=== PATIENT | female | born 1970 | race Caucasian/White ===

== ENCOUNTER → 2017-11-21 08:45 | Outpatient (CLI) | payer OTHER, SELFPAY ==
[2017-11-21 09:58] LABS: Thyroid Stimulating Hormone 0.81 uIU/ml (0.358-3.740)
== END ==
PROVIDERS: Visit Provider Physician Assistant
DX: E03.9 Hypothyroidism, unspecified (principal)
CPT/HCPCS: 36415; 84443

== ENCOUNTER → 2017-12-26 08:04 | Outpatient (CLI) | payer SELFPAY ==
--- NOTE | 2017-12-26 08:06 | MM_ITS ---
MM Dig screening mamm BI w/CAD CAD Screening COMPARISON: Digital mammograms with CAD 10/04/2016 and 07/14/2015 INDICATION: There is no personal or family history of breast cancer. This been previous biopsy left breast for benign disease. TECHNIQUE: Standard CC and MLO images were obtained. R2 CAD reviewed. FINDINGS: Moderate diffuse fibroglandular densities are seen in both breast primarily upper outer quadrants. There is a possible asymmetric density lower inner quadrant left breast. Suggest patient return for spot compression views and probably ultrasound as well. There are no suspicious microcalcifications. IMPRESSION: Moderate diffuse breast density with probable asymmetric density left breast BI-RADS Category: 0 Need Additional Imaging Evaluation RECOMMENDED FOLLOW-UP: IMM - IMMEDIATE FOLLOW-UP RECOMMENDED (A letter has been sent to the patient regarding results of the study.)
== END ==
PROVIDERS: Family Provider Family Medicine; PCP Family Medicine; Visit Provider Obstetrics & Gynecology
DX: Z12.31 Encounter for screening mammogram for malignant neoplasm of breast (principal)
CPT/HCPCS: 77067

== ENCOUNTER → 2018-01-12 12:55 | Outpatient (CLI) | payer OTHER, SELFPAY ==
--- NOTE | 2018-01-12 13:02 | US_ITS ---
US breast LT complete COMPARISON: Diagnostic left mammogram same date HISTORY: Evaluation of asymmetric nodular density left breast TECHNIQUE: Targeted ultrasound FINDINGS: There is an oval hypoechoic lesion 6:00 position near the nipple measuring 0.7 0.5 x 1.2 cm. It has both cystic and solid components and likely is a complex cyst with internal debris or possibly a cyst with recent internal hemorrhage. There is a well-defined interface between the lesion and the surrounding breast parenchyma which is a normal appearance. IMPRESSION: Probable benign lesion such as a complex cyst or fibroadenoma however recommend patient return for 6 month follow-up left mammogram and ultrasound for continuing evaluation
--- NOTE | 2018-01-12 13:02 | MM_ITS ---
MM Dig mamm DX unilat LT CAD COMPARISON: Screening mammogram with CAD 12/26/2017 INDICATION: Asymmetric nodular density left breast TECHNIQUE: Spot compression MLO and CC views FINDINGS: There Is a small oval nodular lesion lower inner quadrant. It has rather smooth borders and the surrounding breast parenchyma is primarily fatty. Ultrasound performed the same date showed a complex cystic and solid benign-appearing lesion with smooth borders. A complex cyst with internal debris and/or a fibroadenoma or possibilities. IMPRESSION: Probable benign lesion as described above and recommend the patient return for 6 month follow-up mammogram and ultrasound for continuing evaluation. BI-RADS Category: 3 Benign Finding Short Term Follow-up RECOMMENDED FOLLOW-UP: 6M - 6 MONTH FOLLOW-UP (A letter has been sent to the patient regarding results of the study.)
== END ==
PROVIDERS: Family Provider Family Medicine; PCP Family Medicine; Visit Provider Obstetrics & Gynecology
DX: N64.59 Other signs and symptoms in breast (principal)
CPT/HCPCS: 76641; 77065

== ENCOUNTER → 2018-08-15 12:04 | Outpatient (CLI) | payer OTHER, SELFPAY ==
--- NOTE | 2018-08-15 12:07 | US_ITS ---
MM Dig mamm DX unilat LT CAD Left breast ultrasound complete with axilla INDICATION: Follow-up abnormal mammogram and ultrasound ORDERING PHYSICIAN: Joseph Carbone MD PATIENT AGE: 48 years COMPARISON: 12/26/2017, 01/12/2018 TECHNIQUE: Standard CC and MLO images were obtained. R2 CAD reviewed. FINDINGS: Asymmetric density is noted in the upper outer aspect of the left breast appear to compress out as fibroglandular tissue . There is a persistent nodular lesion in the medial aspect of the left breast measuring 12 mm at the 7:00 area. Or slightly larger than when compared to the previous exam. Left breast ultrasound: There is a complex 7 x 5 mm cyst at 1:00. At 7:00 near the nipple there is a hypoechoic nodule oval shaped at 13 x 8 mm. Previously this was 7 x 5 mm. This is hypoechoic with enhanced through transmission of sound with some cystic areas but has increased in size and does have some solid component as well. There is a 5 mm cyst at 3:00 IMPRESSION: Nodular density in the medial aspect of left breast at 7:00 is slightly increased in size with a complex cystic appearance by ultrasound. Mildly suspicious. Ultrasound-guided mammotome biopsy recommended BI-RADS Category: 4 Suspicious Abnormality-Biopsy Considered RECOMMENDED FOLLOW-UP: BIO - BIOPSY RECOMMENDED (A letter has been sent to the patient regarding results of the study.)
== END ==
PROVIDERS: PCP Family Medicine; Visit Provider Obstetrics & Gynecology
DX: R92.8 Other abnormal and inconclusive findings on diagnostic imaging of breast (principal)
CPT/HCPCS: 76641; 77065

== ENCOUNTER → 2018-08-28 07:20 | Outpatient (CLI) | payer OTHER, SELFPAY ==
[2018-08-28 07:48] LABS: Basophils # 0.1 K/mm3 (0-0.2); Basophils % 0.9 % (0.1-2.0); Eosinophils # 0.1 K/mm3 (0.0-0.4); Eosinophils % 2.5 % (0.1-12.0); Hematocrit 43.9 % (37.0-47.0); Hemoglobin 14.6 g/dL (12.2-16.2); Lymphocytes # 2.1 K/mm3 (0.7-4.5); Lymphocytes % 39.5 % (10-50); Mean Corpuscular HGB Conc 33.2 g/dL (31.8-35.4); Mean Corpuscular Hemoglobin 27.8 pg (27.0-31.2); Mean Corpuscular Volume 83.8 fl (81-99); Mean Platelet Volume 8.5 fl (7.4-10.4); Monocytes # 0.3 K/mm3 (0.1-1.0); Monocytes % 4.8 % (1.7-9.3); Neutrophils # 2.8 K/mm3 (1.8-7.8); Neutrophils % 52.4 % (37.0-80.0); Platelet Count 210 K/mm3 (142-424); Red Blood Count 5.25 M/mm3 (4.20-5.40); Red Cell Distribution Width 13.2 % (11.5-17.5); White Blood Count 5.4 K/mm3 (4.8-10.8)
[2018-08-28 16:17] LABS: Chol/HDL Ratio 3.4 (1-3.5); Cholesterol 118 mg/dL (140-200); Ferritin 47 ng/mL (8-388); HDL Cholesterol 35 mg/dL (29-89); LDL Cholesterol 72 mg/dL (0-130); Thyroid Stimulating Hormone 0.42 uIU/ml (0.358-3.740); Triglycerides 53 mg/dL (30-200); VLDL Cholesterol 11 mg/dL (0-40)
[2018-08-29 08:31] LABS: Iron 66 ug/dL (27-159); UIBC 210 ug/dL (131-425)
[2018-08-29 15:04] LABS: Iron Saturation 24 % (15-55)
== END ==
PROVIDERS: Visit Provider Physician Assistant
DX: E03.9 Hypothyroidism, unspecified (principal); Z86.2 Personal history of diseases of the blood and blood-forming organs and certain disorders involving the immune mechanism; Z13.220 Encounter for screening for lipoid disorders
CPT/HCPCS: 36415; 80061; 82728; 83540; 83550; 84439; 84443; 85025

== ENCOUNTER → 2018-09-06 09:55 | Outpatient (CLI) | payer OTHER, SELFPAY ==
--- NOTE | 2018-09-06 10:10 | US_ITS ---
US mammotome bx LT, MM clip placement LT INDICATION: Abnormal mammogram and left breast ultrasound with left breast nodule noted. ORDERING PHYSICIAN: Savage Zapien MD PATIENT AGE: 48 years COMPARISON: 08/15/2018 TECHNIQUE: The nodule of interest was noted with prebiopsy ultrasound and appropriate area marked for biopsy. Following obtaining informed consent and timeout procedure under aseptic conditions and local anesthesia with 1% buffered lidocaine and deeper anesthesia with lidocaine mixed with epinephrine skin neck was performed and 9 gauge mammotomy needle inserted. Multiple mammotomy cores are obtained. The nodule nearly completely resolved at the end of the procedure. A clip was then placed. Postbiopsy mammogram: Postbiopsy changes are present in the region of the nodule of interest at 7:00. The nodule was noted is smaller. Pathology: Benign breast with stromal fibrosis, adenosis, cystic dilatation of ducts and features compatible with cyst wall. Negative for carcinoma IMPRESSION: Successful and uneventful sonographic guided mammotome biopsy of left breast showing benign findings. Recommend 6 month mammographic and sonographic follow-up per routine protocol..
== END ==
PROVIDERS: PCP Family Medicine; Visit Provider Surgery
DX: N63.23 Unspecified lump in the left breast, lower outer quadrant (principal)
CPT/HCPCS: 19083; 76942; 77065; C2618

== ENCOUNTER → 2019-01-21 14:07 | Outpatient (CLI) | payer OTHER, SELFPAY ==
--- NOTE | 2019-01-21 14:08 | MM_ITS ---
MM Dig mamm BI DX w/CAD, US breast LT complete INDICATION: Follow-up abnormal mammogram, follow-up breast biopsy, fibrocystic changes ORDERING PHYSICIAN: Savage Zapien MD PATIENT AGE: 48 years COMPARISON: 12/26/2017, 08/15/2018, 09/06/2018 TECHNIQUE: Standard images performed along with spot compression views and left breast ultrasound FINDINGS: Average to dense fibroglandular tissue Right breast: Unremarkable. Left breast: Biopsy clip is present adjacent to a nodular density in the lower inner quadrant of left breast middle one third. This nodule is smaller than when compared to the prebiopsy exam of 08/15/2018. Benign-appearing cluster of calcifications noted in the inferior aspect of left breast stable since 07/14/2015 Left breast ultrasound: 4 mm hypoechoic nodule at 1:00 consistent with a complicated cyst., Dictated cyst at 3:00 at 5 mm hypoechoic nodule at 7:00 at 1 x 0.3 cm. This is smaller when compared to the previous study previously measuring 1.3 x 0.6 cm. This was the nodule that was biopsied. There is good through transmission of sound with well-defined margins. The nodule was left in the chest wall IMPRESSION: Benign findings. No convincing evidence of malignancy. Negative right breast. Benign findings left breast. Previously noted nodule at 7:00 is smaller status post biopsy BI-RADS Category: 2 Benign Finding(s) RECOMMENDED FOLLOW-UP: 1YR - 1 YEAR FOLLOW-UP (A letter has been sent to the patient regarding results of the study.)
== END ==
PROVIDERS: PCP Family Medicine; Visit Provider Surgery
DX: N63.20 Unspecified lump in the left breast, unspecified quadrant (principal)
CPT/HCPCS: 76641; 77066

== ENCOUNTER → 2020-09-29 15:46 | Outpatient (CLI) | payer OTHER, SELFPAY ==
--- NOTE | 2020-09-29 15:48 | MM_ITS ---
PROCEDURE: MM DIG SCREENING MAMM BI W/CAD Digital Breast Tomosynthesis Included CLINICAL INDICATION: SCREENING There is no personal or family history of breast cancer. There has been a previous biopsy left breast for disease. COMPARISON: MG DXLT MM Dig mamm DX unilat LT CAD from 08/15/2018 MG CLIPLT MM clip placement LT from 09/06/2018 MG MM DIG MAMM BI DX W/CAD from 01/21/2019 TECHNIQUE: Standard CC and MLO images and 3D Tomosynthesis was obtained. R2 CAD reviewed. FINDINGS: Mild to moderate scattered fibroglandular densities are seen in both breast primarily upper quadrants. There is a mole marker low in the left axilla and another mole marker inner quadrant left breast. There is a biopsy clip left breast. There are few benign-appearing microcalcifications in each breast. There is a possible new asymmetric density upper-outer quadrant right breast with slightly irregular borders. Recommend the patient return for spot compression views and ultrasound for additional evaluation of the area marked on the film. IMPRESSION: Fibrofatty parenchyma with probable new nodular lesion right breast BI-RAD Category: 0 Need Additional Imaging Evaluation FOLLOW-UP: IMM Immediate Follow-up Recommended (A letter has been sent to the patient regarding results of the study.) Dictated by: Dr. Andrei Salinas MD 10/02/2020 11:32 Dr. Andrei Salinas MD in [place] 10/02/2020 11:32
== END ==
PROVIDERS: PCP Family Medicine; Visit Provider Physician Assistant
DX: Z12.31 Encounter for screening mammogram for malignant neoplasm of breast (principal)
CPT/HCPCS: 77063; 77067

== ENCOUNTER → 2020-10-16 13:48 | Outpatient (CLI) | payer OTHER, SELFPAY ==
--- NOTE | 2020-10-16 13:52 | US_ITS ---
PROCEDURE: MM DIG MAMM DX UNILAT RT CAD Digital Breast Tomosynthesis Included CLINICAL INDICATION: ABN MAMM Follow-up abnormal mammogram COMPARISON: MG DMSB DIG MAMM-SCREEN RANDOLPH W/CAD from 10/04/2016 MG SCBI MM Dig screening mamm BI w/CAD from 12/26/2017 MG DXLT MM Dig mamm DX unilat LT CAD from 01/12/2018 MG CLIPLT MM clip placement LT from 09/06/2018 MG MM DIG MAMM BI DX W/CAD from 01/21/2019 MG MM DIG SCREENING MAMM BI W/CAD from 09/29/2020 US US BREAST RT COMPLETE from 10/16/2020 TECHNIQUE: Standard CC and MLO images and 3D Tomosynthesis was obtained. R2 CAD reviewed. FINDINGS: Right mammogram: Spot-compression views are obtained. There is a vague nodular density in the upper outer lateral aspect of the right breast at 8 mm and 1 in the deep aspect of the right breast at 4 mm. No malignant appearing microcalcifications evident. Right breast ultrasound: At 10 o'clock there is a 6 x 2 mm cyst. Small nodes are present in the axilla. There is some prominent ducts in the retroareolar region. IMPRESSION: Probably benign findings. The nodule in the upper outer right breast may be due to small cyst. The central deep breast nodule is not well identified on either the MLO or the breast ultrasound. Suggest six-month sonographic and mammographic follow-up. BI-RAD Category: 3 Probably Benign Finding Short Term Follow-up Follow-Up: 6M 6Month Follow-up (A letter has been sent to the patient regarding results of the study.) Dictated by: Edison Padilla MD 10/23/2020 13:23 Edison Padilla MD in [place] 10/23/2020 13:23
== END ==
PROVIDERS: PCP Family Medicine; Visit Provider Physician Assistant
DX: R92.8 Other abnormal and inconclusive findings on diagnostic imaging of breast (principal)
CPT/HCPCS: 76641; 77061; 77065; G0279

== ENCOUNTER → 2021-04-19 13:09 | Outpatient (CLI) | payer BC, SELFPAY ==
--- NOTE | 2021-04-19 13:14 | MM_ITS ---
PROCEDURE: MM DIG MAMM DX UNILAT RT CAD Digital Breast Tomosynthesis Included Right breast ultrasound CLINICAL INDICATION: ABN MAMM 6 MONTH FOLLOW UP COMPARISON: MG DMSB DIG MAMM-SCREEN RANDOLPH W/CAD from 10/04/2016 MG SCBI MM Dig screening mamm BI w/CAD from 12/26/2017 MG MM DIG MAMM BI DX W/CAD from 01/21/2019 MG MM DIG SCREENING MAMM BI W/CAD from 09/29/2020 MG MM DIG MAMM DX UNILAT RT CAD from 10/16/2020 US US BREAST RT COMPLETE from 10/16/2020 US US BREAST RT COMPLETE from 04/19/2021 TECHNIQUE: Standard CC and MLO images and 3D Tomosynthesis was obtained. R2 CAD reviewed. FINDINGS: There are scattered areas of fibroglandular density. The area of asymmetry previously described in the upper aspect of the right breast is somewhat less apparent. No malignant appearing mass or malignant-appearing microcalcification. Right breast ultrasound: A 4 mm by 6 mm cyst is present at the 10 o'clock region not significantly changed. No other significant abnormalities are apparent. IMPRESSION: Benign findings. Recommend resume screening mammogram in September 2021 BI-RAD Category: 2 Benign Finding FOLLOW-UP: 6M 6 Month Follow-up (A letter has been sent to the patient regarding results of the study.) Dictated by: Edison Padilla MD 04/29/2021 18:06 Edison Padilla MD in [place] 04/29/2021 18:06
== END ==
PROVIDERS: PCP Family Medicine; Visit Provider Family Medicine
DX: R92.8 Other abnormal and inconclusive findings on diagnostic imaging of breast (principal)
CPT/HCPCS: 76641; 77061; 77065; G0279

== ENCOUNTER → 2021-12-27 12:22 | Outpatient (CLI) | payer BC, SELFPAY ==
[2021-12-27 13:10] LABS: Basophils % 0.6 % (0.1-2.0); Eosinophils # 0.1 K/mm3 (0.0-0.4); Hematocrit 43.4 % (37.0-47.0); Hemoglobin 14.1 g/dL (12.2-16.2); Lymphocytes # 2.1 K/mm3 (0.7-4.5); Mean Corpuscular HGB Conc 32.6 g/dL (31.8-35.4); Mean Corpuscular Hemoglobin 27.8 pg (27.0-31.2); Mean Corpuscular Volume 85.3 fl (81-99); Mean Platelet Volume 8.2 fl (7.4-10.4); Monocytes # 0.3 K/mm3 (0.1-1.0); Monocytes % 5.1 % (1.7-9.3); Neutrophils # 3.9 K/mm3 (1.8-7.8); Neutrophils % 60.3 % (37.0-80.0); Platelet Count 303 K/mm3 (142-424); Red Blood Count 5.09 M/mm3 (4.20-5.40); Red Cell Distribution Width 14.3 % (11.5-17.5); White Blood Count 6.5 K/mm3 (4.8-10.8)
[2021-12-27 13:31] LABS: Chloride 103 mmol/L (98-107)
[2021-12-27 13:32] LABS: Potassium 3.6 mmoL/L (3.5-5.1); Sodium 137 mmol/L (136-145)
[2021-12-27 13:34] LABS: Alanine Aminotransferase 26 U/L (12-78); Alkaline Phosphatase 72 U/L (38-126); Anion Gap 11.6 mEq/L (5-15); Aspartate Amino Transferase 37 U/L (14-36); Bilirubin,Total 0.6 mg/dl (0.2-1.3); Blood Urea Nitrogen 10 mg/dl (7-17); Carbon Dioxide 26 mmol/L (22.0-30.0); Cholesterol 195 mg/dl (140-200); Estimated Glomerular Filt Rate 89 ml/min (>60); GFR (African American) 108 ML/MIN (>60); Iron 131 ug/dL (37-170); Triglycerides 98 mg/dl (30-150); VLDL Cholesterol 20 mg/dL (0-40)
[2021-12-27 13:35] LABS: Albumin Level 4.4 g/dl (3.5-5.0); Albumin/Globulin Ratio 1.4 (1.1-1.8); Calcium 9.6 mg/dl (8.4-10.2); Chol/HDL Ratio 3.3 (1-3.5); Globulin 3.1 g/dL (1.3-3.2); Glucose 94 mg/dl (74-100); HDL Cholesterol 59 mg/dl (40-60); Total Protein,Serum 7.5 g/dl (6.3-8.2)
[2021-12-27 13:45] LABS: Total Iron Binding Capacity 300 ug/dL (265-497)
[2021-12-27 13:50] LABS: Free T4 (Free Thyroxine) 1.22 ng/dl (0.78-2.19)
[2021-12-27 14:06] LABS: Thyroid Stimulating Hormone 0.96 uIU/mL (0.465-4.68)
[2021-12-27 14:09] LABS: Ferritin 42.7 ng/ml (6.24-137)
== END ==
PROVIDERS: PCP Family Medicine; Visit Provider Physician Assistant
DX: E78.1 Pure hyperglyceridemia (principal); E03.9 Hypothyroidism, unspecified; I10 Essential (primary) hypertension; Z86.2 Personal history of diseases of the blood and blood-forming organs and certain disorders involving the immune mechanism
CPT/HCPCS: 36415; 80053; 80061; 82728; 83540; 83550; 84439; 84443; 85025

== ENCOUNTER → 2022-05-05 11:22 | Outpatient (CLI) | payer BC, SELFPAY ==
[2022-05-05 12:13] LABS: Coronavirus 19, PCR Not Detected (NotDetected); Influenza B, PCR Not Detected (NotDetected)
[2022-05-05 12:33] LABS: Basophils # 0.1 K/mm3 (0-0.2); Basophils % 1.7 % (0.1-2.0); Eosinophils % 0.4 % (0.1-12.0); Hematocrit 45.6 % (37.0-47.0); Hemoglobin 14.8 g/dL (12.2-16.2); Lymphocytes # 1.3 K/mm3 (0.7-4.5); Mean Corpuscular HGB Conc 32.5 g/dL (31.8-35.4); Mean Corpuscular Hemoglobin 28.4 pg (27.0-31.2); Mean Corpuscular Volume 87.3 fl (81-99); Mean Platelet Volume 9.3 fl (7.4-10.4); Monocytes # 0.3 K/mm3 (0.1-1.0); Monocytes % 8.2 % (1.7-9.3); Neutrophils # 2.5 K/mm3 (1.8-7.8); Neutrophils % 59.8 % (37.0-80.0); Platelet Count 255 K/mm3 (142-424); Red Blood Count 5.22 M/mm3 (4.20-5.40); Red Cell Distribution Width 15.2 % (11.5-17.5); White Blood Count 4.2 K/mm3 (4.8-10.8)
[2022-05-05 12:44] LABS: Influenza A, PCR Detected (NotDetected)
== END ==
PROVIDERS: PCP Family Medicine; Visit Provider Physician Assistant
DX: Z20.822 Contact with and (suspected) exposure to COVID-19 (principal); J09.X2 Influenza due to identified novel influenza A virus with other respiratory manifestations
CPT/HCPCS: 36415; 85025; C9803; U0003; U0005

== ENCOUNTER → 2022-10-12 16:58 | Outpatient (CLI) | payer BC, SELFPAY ==
--- NOTE | 2022-10-12 17:04 | MM_ITS ---
PROCEDURE INFORMATION: Exam: MG Bilateral Screening 3D Mammography Exam date and time: 10/12/2022 4:57 PM Age: 52 years old Clinical indication: Screening examination TECHNIQUE: Imaging protocol: Bilateral Screening tomosynthesis and 2D mammography including computer-aided detection (CAD) when performed. COMPARISON: 1. MG MM DIG MAMM DX UNILAT RT CAD 04/19/2021 1:30 PM 2. MG MM DIG MAMM DX UNILAT RT CAD 10/16/2020 2:10 PM FINDINGS: MAMMOGRAPHY: Breast composition: There are scattered areas of fibroglandular density. Mass: None. Architectural distortion: None. Calcifications: No suspicious calcifications. Asymmetric density: None. Skin thickening: None. Axillary adenopathy: None. IMPRESSION: No mammographic evidence of malignancy. Annual screening is recommended unless otherwise clinically indicated. ASSESSMENT: BI-RADS Category 1: Negative
== END ==
PROVIDERS: PCP Family Medicine; Visit Provider Family Medicine
DX: Z12.31 Encounter for screening mammogram for malignant neoplasm of breast (principal)
CPT/HCPCS: 77063; 77067

== ENCOUNTER 2023-04-24 08:38 | Emergency (ER) | payer BC, SELFPAY ==
[2023-04-24 09:20] VITALS: BP 145/92; PULSE 91; RESP 18; TEMP 36.8; O2SAT 98; BMI 28.7
[2023-04-24 09:38] VITALS: BP 145/92; PULSE 91; RESP 18; TEMP 36.8; O2SAT 98
--- NOTE | 2023-04-24 09:43 | EXP.UTC ---
Discharge Plan Disposition Patient Disposition: Home, Self-Care Condition: Good Prescriptions Prescriptions: New benzonatate 100 mg capsule 100 mg PO TID PRN (Reason: cough) Qty: 30 0RF No Action lisinopril 20 mg tablet 20 mg PO DAILY levothyroxine 100 mcg tablet 100 mcg PO DAILY Patient Comments: TAKE ONE TABLET BY MOUTH EVERY DAY estradiol 1 mg tablet See Rx Instructions .ROUTE .COMPLEX Qty: 30 12RF Dose Instruction: TAKE ONE TABLET BY MOUTH EVERY DAY Rx Instructions: TAKE ONE TABLET BY MOUTH EVERY DAY amlodipine 5 mg tablet 5 mg PO DAILY Patient Comments: TAKE ONE TABLET BY MOUTH EVERY DAY Referrals Follow up/Referrals: Chavez Lozano MD [Primary Care Provider] - See instructions Activity Restrictions/Add. Instructions Additional Instructions/Restrictions: *Monitor Temp, Over the counter Motrin or Tylenol as directed/as needed Tylenol every 4 hours and Motrin every 6 hours (as long as your family doctor has told you that you can take it) for fever or pain. and straight to ER if unable to lower temp less than 101.0 after medication given *Warm salt water gargles may help to soothe the throat *Throat Lozenges? *Warm fluids like tea with honey may help to soothe the throat? *Sleep elevated *Humidifier/Vaporizer Your throat swab was sent for culture. Those results are typically sent to your primary care. Be sure to follow up in 2-3 days with your family doctor/primary care physician if no improvement so they can review those result and treat if necessary. If you don?t have a primary care doctor, I recommend you get one but in the mean time, you will have to return to a walk in clinic Follow up IMMEDIATELY for new or worsening symptoms or no Noticeable improvement over the next 48-72 hours. 911 for difficulty breathing or swallowing Clinical Impressions Clinical Impression: Viral upper respiratory tract infection with cough Stand Alone Forms Stand Alone Forms: Work/School Release Instructions Patient Instructions: Cough, Sore Throat Discharge ED Provider: Giulia Palacios [facility] [place] HPI General Stated complaint: sore throat Mode of Arrival: Ambulatory Source of Information: Patient Limitations: No Limitations Time Seen by Provider: 04/24/23 09:44 Description of Symptoms (Recalled from Triage Doc. by RN): PATIENT C/O SORE THROAT AND COUGH X 2 DAYS HEENT Symptoms (Recalled from RN notes): Yes Resp Symptoms (Recalled from RN notes): Yes Skin Symptoms (Recalled from RN notes): No MS Symptoms (Recalled from RN notes): No Functional Status (Recalled from RN notes): WNL History of Present Illness Provider Complaint: Patient states she started a couple days ago with sore throat and cough States that today her throat was hurting worse and she was worried she may have strep throat or COVID states that she was around someone last week that tested positive for COVID Related Data Home Medications Medication Instructions Recorded Confirmed lisinopril 20 mg tablet 20 mg PO DAILY 03/16/21 04/24/23 levothyroxine 100 mcg tablet 100 mcg PO DAILY 06/08/21 04/24/23 amlodipine 5 mg tablet 5 mg PO DAILY 04/24/23 04/24/23 Previous Rx's Medication Instructions Recorded estradiol 1 mg tablet See Rx Instructions .Route 04/05/22 .COMPLEX #30 tabs benzonatate 100 mg capsule 100 mg PO TID PRN cough #30 caps 04/24/23 Allergies Allergy/AdvReac Type Severity Reaction Status Date / Time No Known Allergies Allergy Verified 06/08/21 15:18 Worker's Comp Is this a Worker's Comp case?: No [facility] Disclaimer: The information contained in this section may have been updated after the patient was seen, as this information can be updated by other users. Medical History (Updated 04/24/23 @ 09:53 by Giulia Palacios APRN) Hypertension Surgical History (Updated 04/24/23 @ 09:32 by Lanie Luong RN) History
[2023-04-24 09:45] LABS: UTC Strep Screen (Rapid) Negative (Negative)
== END 2023-04-24 10:00 | disposition home or self-care (01) ==
PROVIDERS: Emergency Provider Nurse Practitioner; PCP Family Medicine
DX: U07.1 COVID-19 (principal); I10 Essential (primary) hypertension
CPT/HCPCS: 87635; 87880; 99204; 99212; G0463

== ENCOUNTER 2023-07-25 20:35 | Outpatient (CLI) | payer BC, SELFPAY | END 2023-07-25 23:59 | LOC: LAB.DROPOF 20:35 | PROVIDERS: PCP Student in an Organized Health Care Education/Training Program; Visit Provider Student in an Organized Health Care Education/Training Program | DX: R35.0 Frequency of micturition (principal); B96.89 Other specified bacterial agents as the cause of diseases classified elsewhere | CPT/HCPCS: 87086 ==

== ENCOUNTER 2024-09-11 07:43 | Outpatient (CLI) | payer BC, SELFPAY ==
--- NOTE | 2024-09-11 08:00 | CA_ITS ---
APPROVED REPORT EXAM: Comprehensive 2D, Doppler, and color-flow Echocardiogram Kiln Maintenance: Kimberly Kat, JUSTIN, RVS Ht: 5 ft 6 in Wt: 175lbs BSA: 1.89 BP: 134/86 mmHg Indications: CP, HTN, Abn EKG, SOA 2D Dimensions IVSd 0.81 cm F: 0.6-1.0 LVEF (Visual) 72.20 % PWd 0.85 cm F: 0.6 - 1.0 LA Volume 33.50 mL LVDd 3.95 cm F: 3.9 - 5.3 LA Volume Index 17.601407 mL/m2 (M/F) 16-34 LVDs 2.34 cm F: 2.2 - 3.5 Left Atrium 3.28 cm F: 2.7 - 3.8 M-Mode Dimensions LA Diam 3.45 cm (1.9-4.0) LVDd 3.44 cm (3.5-5.7) LVDs 2.56 cm (3.5-5.7) EF (Teich) 51.40% EPSs 0.19 cm FS 25.60% EDV (Teich) 48.80 mL TAPSE 2.12 (<1.7) ESV (Teich) 23.70 mL LV Diastology E Decel Time 257 (160-240 msec) E/A Ratio 0.81 MED A' 11.00 cm/s LAT A' 13.40 cm/s Aortic Valve KERRI Index 1.31 cm2/m2 AoV Peak Isaac. 128.0 (50-130 cm/s) AO Peak GR. 6.50 mmHg AO Mean GR. 3.20 (<5 mmHg) AO VTI 25.4 (18-25 cm) KERRI (VTI) 2.54 (2.5-4.5 cm2) Mitral Valve MV A Velocity 97.0 (40-130 cm/s) E/A Ratio 0.81 Tricuspid Valve TR P. Velocity 195.00 cm/s RAP Estimate 10.00 mmHg RVSP 25.20 mmHg Left Ventricle The left ventricle is normal size. The left ventricular systolic function is normal. The left ventricular ejection fraction is within the normal range. There is increased LV wall thickness. There is normal LV segmental wall motion. The left ventricular diastolic function is normal. LVEF is 55%. Right Ventricle The right ventricle is normal size. The right ventricular systolic function is normal. Atria The left atrium size is normal. The right atrium size is normal. There is no Doppler evidence of interatrial shunt. Aortic Valve Aortic valve is mildly thickened. There is no aortic valvular stenosis. No aortic regurgitation is present. Mitral Valve The mitral valve is normal in structure. No evidence of mitral valve stenosis. Trace mitral regurgitation. Tricuspid Valve Tricuspid valve is grossly normal in structure and function. Trace tricuspid regurgitation. There is insufficient TR jet to estimate RVSP. Pulmonic Valve The pulmonary valve is normal in structure. Trace pulmonic regurgitation. Great Vessels The aortic root is normal in size. IVC is normal in size and collapses >50% with inspiration. Pericardium There is no pericardial effusion. Other Information Study Quality: Fair Conclusion Normal biventricular systolic function. No significant valvular stenosis or regurgitation. Electronically signed by : Sommer Serrano MD 09/22/2024 23:23:52
[2024-09-11 08:59] LABS: Basophils % 0.4 % (0.1-2.0); Eosinophils # 0.2 K/mm3 (0.0-0.4); Hematocrit 41.4 % (37.0-47.0); Lymphocytes # 1.7 K/mm3 (0.7-4.5); Lymphocytes % 32.2 % (10-50); Mean Corpuscular HGB Conc 31.4 g/dL (31.8-35.4); Mean Corpuscular Hemoglobin 26.6 pg (27.0-31.2); Mean Corpuscular Volume 84.8 fl (81-99); Mean Platelet Volume 9.3 fl (7.4-10.4); Monocytes # 0.5 K/mm3 (0.1-1.0); Monocytes % 8.3 % (1.7-9.3); Neutrophils % 55.9 % (37.0-80.0); Platelet Count 371 K/mm3 (142-424); Red Blood Count 4.88 M/mm3 (4.20-5.40); Red Cell Distribution Width 13.9 % (11.5-17.5); White Blood Count 5.4 K/mm3 (4.8-10.8)
[2024-09-11 09:32] LABS: Alanine Aminotransferase 28 U/L (12-78); Albumin Level 4.4 g/dl (3.5-5.0); Alkaline Phosphatase 66 U/L (38-126); Aspartate Amino Transferase 28 U/L (14-36); Bilirubin,Direct 0.2 mg/dl (0.0-0.4); Bilirubin,Indirect 0.4 mg/dL (0.0-0.9); Bilirubin,Total 0.6 mg/dl (0.2-1.3); Bilirubin,Unconjugated 0.4 mg/dL (0.0-1.1); Blood Urea Nitrogen 14 mg/dl (7-17); Carbon Dioxide 26 mmol/L (22.0-30.0); Chloride 101 mmol/L (98-107); Chol/HDL Ratio 3.5 (1-3.5); Cholesterol 165 mg/dl (140-200); Estimated Glomerular Filt Rate 75 ml/min (>60); GFR (African American) 91 ML/MIN (>60); Glucose 95 mg/dl (74-100); HDL Cholesterol 47 mg/dl (40-60); Sodium 139 mmol/L (136-145); Total Protein,Serum 7.6 g/dl (6.3-8.2); Triglycerides 118 mg/dl (30-150); VLDL Cholesterol 24 mg/dL (0-40)
[2024-09-11 09:43] LABS: Direct LDL Cholesterol 74.57 mg/dL (100-129)
[2024-09-11 09:53] LABS: Free T4 (Free Thyroxine) 1.76 ng/dl (0.78-2.19)
[2024-09-11 10:04] LABS: Thyroid Stimulating Hormone 1.07 uIU/mL (0.465-4.68)
== END 2024-09-11 23:59 | disposition home or self-care (01) ==
LOC: RT 07:45
PROVIDERS: PCP Family Medicine; Visit Provider Nurse Practitioner Family
DX: I10 Essential (primary) hypertension (principal); R07.89 Other chest pain; R94.31 Abnormal electrocardiogram [ECG] [EKG]; R06.02 Shortness of breath
CPT/HCPCS: 36415; 80048; 80061; 80076; 84439; 84443; 85025; 93306

== ENCOUNTER 2024-09-17 07:39 | Outpatient (CLI) | payer BC, SELFPAY ==
--- NOTE | 2024-09-17 | CA_ITS ---
APPROVED REPORT Exam: Pharmacologic Technologist: Mendy Sage Ht: 5 ft 6 in Wt: 175 lbs BSA: 1.89 m2 HR: 76 bpm BP: 147/85 mmHg Stress Test Details Test: Lexiscan HR Resting HR: 76 bpm Max Heart Rate (APMHR): 168.643246 bpm Max HR Achieved: 108 bpm Target HR (85% APMHR): 142.991899 bpm % of APMHR: 64.29 Recovery HR: 91 bpm BP Resting BP: 147.0/85.0 mmHg Max BP: 180.0/87.0 mmHg Recovery BP: 145.0/76.0 mmHg ECG Resting ECG: Sinus rhythm Stress ECG Conclusion Symptoms: hot flash Arrhythmias/Ectopy: - ST-T Changes: Less than [address] depression Conclusion: EKG unremarkable due to Lexiscan infusion. Electronically signed by : Sommer Serrano MD 09/17/2024 13:10:49
--- NOTE | 2024-09-17 08:00 | NM_ITS ---
APPROVED REPORT Exam: Nuclear Stress Test Indication: Chest pain, SOB, HTN Patient Location: Outpatient Stress Tech: Mendy Sage [place] Tech:Nadialeydi Alex, ARRT, RT (R)(N) Ht: 5 ft 6 in Wt: 180 lbs Bra Size: 38C HR: 82 bpm BP: 147/85 mmHg BSA: 1.91 m2 TID: 1.12 BMI: 29.0 History: Chest pain, SOB, HTN Procedure: Patient received 0.4 mg of intravenous Lexiscan, resting heart rate 82 bpm, resting blood pressure 147/85 mmHg, with Lexiscan maximum heart rate achieved was 124 bpm which is % of the maximum predicted heart rate and blood pressure was 180/87 mmHg. With Lexiscan, patient denied any complaint of chest pain. Cardiac Stress and Resting SPECT Images: Cardiac Stress and Resting SPECT images were obtained using technetium 99m Myoview 31.9 mCi stress and 10.05 mCi at rest. Resting and stress imaging in supine and prone positions demonstrate no evidence of fixed or reversible perfusion defects. Gated imaging demonstrates normal global and regional LV systolic function. LVEF is calculated at 71%. Conclusion: No evidence of fixed or reversible perfusion defects. Gated imaging demonstrates normal global and regional LV systolic function. LVEF is calculated at 71%. Electronically signed by : Sommer Serrano MD 09/17/2024 13:10:14
[2024-09-17] MEDS: SODIUM CHLORIDE 0.9% 10ML SYR (RAD ONLY) 10 ML IV ×2 (09:39→09:40)
[2024-09-17] MEDS: REGADENOSON 0.4MG/5ML SYRINGE 0.4 MG IV (09:39)
[2024-09-17] MEDS: ISOTOPE MYOVIEW (PER STUDY) 1 DOSE IV (09:39)
== END 2024-09-17 23:59 | disposition home or self-care (01) ==
LOC: RAD 07:40
PROVIDERS: PCP Family Medicine; Visit Provider Nurse Practitioner Family
DX: R94.31 Abnormal electrocardiogram [ECG] [EKG] (principal); R07.9 Chest pain, unspecified; I10 Essential (primary) hypertension; R06.02 Shortness of breath
CPT/HCPCS: 78452; 93017; 93018; A9502; J2785